=== PATIENT | female | born 1945 | race Caucasian/White ===

== ENCOUNTER 2023-10-01 15:17 | Inpatient (IN) | payer BC ==
[~2023-10-01] VITALS: Ht 149.9 cm; Wt 59.0 kg
[2023-10-01 15:20] VITALS: BP 116/60; PULSE 117; RESP 30; TEMP 101.9; O2SAT 97
[2023-10-01] MEDS: NACL 0.9% 2,000 ML IV ONE (16:13)
[2023-10-01 16:21] LABS: BASOPHILS % (AUTO) 0.3 % (0.0-2.0); EOSINOPHILS % (AUTO) 0.5 % (0.0-4.0); LYMPHOCYTES # (AUTO) 0.5 K/uL (2.5-16.5); LYMPHOCYTES % (AUTO) 9.2 % (20.5-51.1); MEAN CORPUSCULAR HEMOGLOBIN 29 pg (27-31); MEAN CORPUSCULAR HGB CONC 33 g/dL (33-37); MEAN CORPUSCULAR VOLUME 85.2 fL (80-94); MONOCYTES % (AUTO) 0.4 % (1.7-9.3); NEUTROPHILS # (AUTO) 4.9 K/uL (1.8-7.7); NEUTROPHILS % (AUTO) 89.6 % (42.2-75.2); PLATELET COUNT (AUTO) 238 K/uL (140-450); RED BLOOD CELL COUNT(AUTO) 4.22 MIL/uL (4.20-5.40); RED CELL DISTRIBUTION WIDTH 14.1 % (11.6-13.7); WHITE BLOOD COUNT (AUTO) 5.5 K/uL (4.8-10.8)
[2023-10-01 16:26] LABS: FLU A ANTIGEN negative (NEGATIVE); FLU B ANTIGEN NEGATIVE (NEGATIVE)
[2023-10-01 16:46] LABS: ANION GAP 13.9 (8-16); CALCIUM 8.1 mg/dL (8.5-10.1); CARBON DIOXIDE 26.4 mmol/L (21-32); CHLORIDE 104 mmol/L (98-107); CREATININE 0.9 mg/dL (0.6-1.3); GLUCOSE 185 mg/dL (74-106); POTASSIUM 3.3 mmol/L (3.5-5.1); SODIUM SERUM 141 mmol/L (136-145); UREA NITROGEN, BLOOD 12 mg/dL (7-18)
[2023-10-01 17:00] LABS: BILIRUBIN,URINE NEGATIVE (NEGATIVE); BLOOD, URINE TRACE-I (NEGATIVE); COLOR,URINE YELLOW (YELLOW); LEUKOCYTE ESTERASE ,URINE 2+ (NEGATIVE); NITRITE, URINE POSITIVE (NEGATIVE); PROTEIN,URINE NEGATIVE (NEGATIVE); UGLUCOSE NEGATIVE (NEGATIVE); UROBILINOGEN,URINE 0.2 EU/dL (0.2 - 1)
[2023-10-01 17:00] LABS: ALANINE AMINOTRANSFERASE 34 U/L (12-78); ALBUMIN 3.3 g/dL (3.4-5.0); ALKALINE PHOSPHATASE 62 U/L (50-136); ASPARTATE AMINOTRANSFERASE 39 U/L (15-37); BILIRUBIN,DIRECT 0.1 mg/dL (0.0-0.3); LIPASE 38 U/L (16-77); MAGNESIUM 1.6 mg/dL (1.8-2.4); PHOSPHORUS 2.5 mg/dL (2.5-4.9); TOTAL BILIRUBIN 0.4 mg/dL (0.0-1.0); TOTAL PROTEIN, SERUM 7.2 g/dL (6.4-8.2)
[2023-10-01 17:01] LABS: APPEARANCE,URINE CLOUDY (CLEAR)
[2023-10-01 17:08] LABS: BACTERIA,URINE >30 (MANY) /HPF (None Seen); SQUAMOUS EPITHELIAL CELL,UR 4-10 (MOD) /LPF (0-3 (FEW))
[2023-10-01 17:12] LABS: LACTIC ACID 2.6 mmol/L (0.4-2.0)
[2023-10-01] MEDS ORDERED: cefTRIAXone 1,000 MG VIAL ONE (17:33)
[2023-10-01] MEDS: ACETAMINOPHEN EXTRA STRENGTH 500 MG TAB PO ONE (17:55)
[2023-10-01] MEDS ORDERED: ROSU20TA73 PO (19:30)
[2023-10-01] MEDS ORDERED: ATEN50TA2 PO (19:30)
[2023-10-01] MEDS ORDERED: LOSA25TA32 PO (19:30)
[2023-10-01] MEDS ORDERED: GLIP1TAB5 PO (19:30)
[2023-10-01 19:31] VITALS: O2SAT 98
[2023-10-01] MEDS: NACL 0.9% 1,000 ML IV SCH (20:02)
[2023-10-01 21:30] VITALS: BP 99/55; PULSE 95; RESP 18; TEMP 97.3; O2SAT 96
[2023-10-01] MEDS: KCL 20 MEQ IN 100 mL PREMIX 100 ML IV ONE (22:21)
[2023-10-01] MEDS ORDERED: ONDANSETRON 4 MG/2 ML VIAL IVP PRN (23:30)
[2023-10-01] MEDS ORDERED: hydrALAZINE 20 MG/ML VIAL IVP PRN (23:30)
[2023-10-01] MEDS ORDERED: ZOLPIDEM 5 MG TAB PO PRN (23:30)
[2023-10-01] MEDS ORDERED: LORazepam 1 MG TAB PO PRN (23:30)
[2023-10-01] MEDS ORDERED: DEXTROSE 50% 50 ML SYR IVP PRN (23:35)
[2023-10-02 04:00] VITALS: BP 108/61; PULSE 85; RESP 18; TEMP 97.3; O2SAT 97
[2023-10-02 04:17] VITALS: O2SAT 95
[2023-10-02 06:19] LABS: ALANINE AMINOTRANSFERASE 34 U/L (12-78); ALBUMIN 2.8 g/dL (3.4-5.0); ALKALINE PHOSPHATASE 52 U/L (50-136); ANION GAP 15.2 (8-16); ASPARTATE AMINOTRANSFERASE 33 U/L (15-37); CALCIUM 6.9 mg/dL (8.5-10.1); CARBON DIOXIDE 24.3 mmol/L (21-32); CHLORIDE 107 mmol/L (98-107); CREATININE 0.8 mg/dL (0.6-1.3); GLUCOSE 168 mg/dL (74-106); POTASSIUM 3.5 mmol/L (3.5-5.1); SODIUM SERUM 143 mmol/L (136-145); TOTAL BILIRUBIN 0.4 mg/dL (0.0-1.0); TOTAL PROTEIN, SERUM 6.4 g/dL (6.4-8.2); UREA NITROGEN, BLOOD 10 mg/dL (7-18)
[2023-10-02] MEDS: BLOOD GLUCOSE MONITORING 1 DEV DEV FS SCH (06:41)
[2023-10-02] MEDS: INSULIN LISPRO SLIDING SCALE 100 UNITS/ML VIAL SUBQ PRN (06:43)
[2023-10-02 06:52] LABS: BASOPHILS # (AUTO) 0.1 K/uL (0.00-0.22); BASOPHILS % (AUTO) 0.4 % (0.0-2.0); EOSINOPHILS % (AUTO) 0.3 % (0.0-4.0); HEMATOCRIT 32.8 % (36-48); HEMOGLOBIN 10.9 g/dL (12.0-16.0); LYMPHOCYTES # (AUTO) 0.9 K/uL (2.5-16.5); LYMPHOCYTES % (AUTO) 5.3 % (20.5-51.1); MEAN CORPUSCULAR HEMOGLOBIN 29 pg (27-31); MEAN CORPUSCULAR HGB CONC 33 g/dL (33-37); MEAN CORPUSCULAR VOLUME 85.8 fL (80-94); MONOCYTES # (AUTO) 0.7 K/uL (0.8-1.0); NEUTROPHILS # (AUTO) 15.6 K/uL (1.8-7.7); PLATELET COUNT (AUTO) 232 K/uL (140-450); RED BLOOD CELL COUNT(AUTO) 3.82 MIL/uL (4.20-5.40); RED CELL DISTRIBUTION WIDTH 14.5 % (11.6-13.7); WHITE BLOOD COUNT (AUTO) 17.3 K/uL (4.8-10.8)
[2023-10-02 08:00] VITALS: BP 108/62; PULSE 80; PULSE 90; RESP 18; TEMP 98.3; O2SAT 96; O2SAT 98
[2023-10-02 08:50] VITALS: O2SAT 94
[2023-10-02] MEDS: DOCUSATE SODIUM 100 MG GELCAP PO SCH (08:54)
[2023-10-02] MEDS: atenoloL 50 MG TAB PO SCH (08:54)
[2023-10-02] MEDS: LOSARTAN 25 MG TAB PO SCH (08:54)
[2023-10-02] MEDS: PANTOPRAZOLE 40 MG INJ VIAL IVP SCH (09:39)
[2023-10-02 16:00] VITALS: BP 115/67; PULSE 85; RESP 18; TEMP 99.3; O2SAT 96
[2023-10-02] MEDS: HYDROcodone/APAP 5/325 MG 1 TAB TAB PO PRN (19:29)
[2023-10-02 20:00] VITALS: PULSE 90; RESP 18; TEMP 98.2; O2SAT 94
[2023-10-03 04:00] VITALS: BP 136/79; PULSE 86; RESP 19; TEMP 98.1; O2SAT 93
[2023-10-03 05:57] LABS: BASOPHILS % (AUTO) 0.2 % (0.0-2.0); EOSINOPHILS # (AUTO) 0.2 K/uL (0-0.4); EOSINOPHILS % (AUTO) 1.4 % (0.0-4.0); HEMATOCRIT 34.2 % (36-48); HEMOGLOBIN 11.3 g/dL (12.0-16.0); LYMPHOCYTES # (AUTO) 1.4 K/uL (2.5-16.5); MEAN CORPUSCULAR HEMOGLOBIN 28 pg (27-31); MEAN CORPUSCULAR HGB CONC 33 g/dL (33-37); MEAN CORPUSCULAR VOLUME 85.6 fL (80-94); MONOCYTES # (AUTO) 0.5 K/uL (0.8-1.0); MONOCYTES % (AUTO) 3.3 % (1.7-9.3); NEUTROPHILS # (AUTO) 13.4 K/uL (1.8-7.7); NEUTROPHILS % (AUTO) 86.1 % (42.2-75.2); PLATELET COUNT (AUTO) 213 K/uL (140-450); RED CELL DISTRIBUTION WIDTH 14.4 % (11.6-13.7); WHITE BLOOD COUNT (AUTO) 15.5 K/uL (4.8-10.8)
[2023-10-03 06:20] LABS: ALANINE AMINOTRANSFERASE 37 U/L (12-78); ALBUMIN 2.8 g/dL (3.4-5.0); ALKALINE PHOSPHATASE 75 U/L (50-136); ANION GAP 13.8 (8-16); ASPARTATE AMINOTRANSFERASE 29 U/L (15-37); CALCIUM 7.3 mg/dL (8.5-10.1); CARBON DIOXIDE 23.3 mmol/L (21-32); CHLORIDE 105 mmol/L (98-107); CREATININE 0.8 mg/dL (0.6-1.3); GLUCOSE 140 mg/dL (74-106); POTASSIUM 3.1 mmol/L (3.5-5.1); SODIUM SERUM 139 mmol/L (136-145); TOTAL BILIRUBIN 0.3 mg/dL (0.0-1.0); TOTAL PROTEIN, SERUM 6.8 g/dL (6.4-8.2); UREA NITROGEN, BLOOD 10 mg/dL (7-18)
[2023-10-03 08:00] VITALS: PULSE 93; RESP 18; TEMP 99.7; O2SAT 97
[2023-10-03] MEDS: POTASSIUM CHLORIDE 10 MEQ TABER PO ONE (09:13)
[2023-10-03] MEDS: POTASSIUM CHLORIDE 10 MEQ TABER PO SCH ×2 (09:59→18:02)
[2023-10-03 16:00] VITALS: BP 138/74; PULSE 79; RESP 18; TEMP 99.6; O2SAT 100
[2023-10-03 20:00] VITALS: PULSE 79; RESP 16; TEMP 98.4; O2SAT 100
[2023-10-04] VITALS: BP 135/70; PULSE 79; RESP 16; TEMP 98.4; O2SAT 94
[2023-10-04 06:10] LABS: ALANINE AMINOTRANSFERASE 36 U/L (12-78); ALBUMIN 2.7 g/dL (3.4-5.0); ALKALINE PHOSPHATASE 94 U/L (50-136); ANION GAP 14.3 (8-16); ASPARTATE AMINOTRANSFERASE 32 U/L (15-37); CALCIUM 7.8 mg/dL (8.5-10.1); CARBON DIOXIDE 21.9 mmol/L (21-32); CHLORIDE 106 mmol/L (98-107); CREATININE 0.6 mg/dL (0.6-1.3); GLUCOSE 139 mg/dL (74-106); POTASSIUM 4.2 mmol/L (3.5-5.1); SODIUM SERUM 138 mmol/L (136-145); TOTAL BILIRUBIN 0.4 mg/dL (0.0-1.0); TOTAL PROTEIN, SERUM 6.9 g/dL (6.4-8.2); UREA NITROGEN, BLOOD 8 mg/dL (7-18)
[2023-10-04 07:23] LABS: BASOPHILS # (AUTO) 0.1 K/uL (0.00-0.22); BASOPHILS % (AUTO) 0.8 % (0.0-2.0); EOSINOPHILS # (AUTO) 0.2 K/uL (0-0.4); EOSINOPHILS % (AUTO) 1.4 % (0.0-4.0); HEMATOCRIT 36.8 % (36-48); HEMOGLOBIN 12.1 g/dL (12.0-16.0); LYMPHOCYTES # (AUTO) 1.7 K/uL (2.5-16.5); MEAN CORPUSCULAR HEMOGLOBIN 29 pg (27-31); MEAN CORPUSCULAR HGB CONC 33 g/dL (33-37); MEAN CORPUSCULAR VOLUME 86.7 fL (80-94); MONOCYTES # (AUTO) 0.6 K/uL (0.8-1.0); MONOCYTES % (AUTO) 4.3 % (1.7-9.3); NEUTROPHILS # (AUTO) 10.7 K/uL (1.8-7.7); NEUTROPHILS % (AUTO) 80.5 % (42.2-75.2); PLATELET COUNT (AUTO) 103 K/uL (140-450); RED BLOOD CELL COUNT(AUTO) 4.25 MIL/uL (4.20-5.40); RED CELL DISTRIBUTION WIDTH 14.5 % (11.6-13.7); WHITE BLOOD COUNT (AUTO) 13.3 K/uL (4.8-10.8)
[2023-10-04 08:00] VITALS: BP_SYST 151; BP_SYST 155; BP_DIAS 76; BP_DIAS 90; PULSE 73; PULSE 79; RESP 16; RESP 18; TEMP 97.9; TEMP 98.4; O2SAT 100; O2SAT 96
[2023-10-04] MEDS: Z-GUARD PASTE TP SCH (14:53)
[2023-10-04] MEDS: Z-GUARD PASTE TP ONE (14:54)
[2023-10-04 16:00] VITALS: BP 126/61; PULSE 72; RESP 18; TEMP 97.8; O2SAT 99
[2023-10-04 20:00] VITALS: PULSE 79; RESP 16; TEMP 98.4; O2SAT 100
[2023-10-05 06:14] LABS: BASOPHILS # (AUTO) 0.1 K/uL (0.00-0.22); EOSINOPHILS # (AUTO) 0.4 K/uL (0-0.4); EOSINOPHILS % (AUTO) 4.4 % (0.0-4.0); HEMOGLOBIN 12.1 g/dL (12.0-16.0); LYMPHOCYTES # (AUTO) 1.8 K/uL (2.5-16.5); MEAN CORPUSCULAR HEMOGLOBIN 28 pg (27-31); MEAN CORPUSCULAR HGB CONC 34 g/dL (33-37); MEAN CORPUSCULAR VOLUME 84.4 fL (80-94); MONOCYTES # (AUTO) 0.5 K/uL (0.8-1.0); MONOCYTES % (AUTO) 5.7 % (1.7-9.3); NEUTROPHILS # (AUTO) 5.3 K/uL (1.8-7.7); NEUTROPHILS % (AUTO) 65.9 % (42.2-75.2); PLATELET COUNT (AUTO) 250 K/uL (140-450); RED BLOOD CELL COUNT(AUTO) 4.27 MIL/uL (4.20-5.40); RED CELL DISTRIBUTION WIDTH 14.4 % (11.6-13.7)
[2023-10-05 06:33] LABS: ALANINE AMINOTRANSFERASE 47 U/L (12-78); ALBUMIN 2.8 g/dL (3.4-5.0); ALKALINE PHOSPHATASE 83 U/L (50-136); ASPARTATE AMINOTRANSFERASE 32 U/L (15-37); CALCIUM 8.4 mg/dL (8.5-10.1); CARBON DIOXIDE 26.6 mmol/L (21-32); CHLORIDE 105 mmol/L (98-107); CREATININE 0.7 mg/dL (0.6-1.3); GLUCOSE 154 mg/dL (74-106); POTASSIUM 3.6 mmol/L (3.5-5.1); SODIUM SERUM 140 mmol/L (136-145); TOTAL BILIRUBIN 0.3 mg/dL (0.0-1.0); TOTAL PROTEIN, SERUM 7.1 g/dL (6.4-8.2); UREA NITROGEN, BLOOD 11 mg/dL (7-18)
[2023-10-05 07:53] VITALS: TEMP 97.9
[2023-10-05 08:00] VITALS: BP 148/89; PULSE 113; RESP 19; TEMP 97.7; O2SAT 98
[2023-10-05 08:13] VITALS: PULSE 80; RESP 19; O2SAT 99
[2023-10-05] MEDS ORDERED: CIPR500T4 PO (12:05)
[2023-10-05 12:53] VITALS: BP 125/70; PULSE 68; RESP 20; TEMP 97.1
[2023-10-05 17:04] VITALS: BP 123/48; PULSE 74; RESP 18; TEMP 97.3; O2SAT 97
== END 2023-10-05 17:05 | disposition home or self-care (01) | DRG 871 ==
LOC: MED 15:17 → MTU 19:14
PROVIDERS: ADMIT Student in an Organized Health Care Education/Training Program; ATTEND Student in an Organized Health Care Education/Training Program
DX: A41.9 Sepsis, unspecified organism (principal); G93.41 Metabolic encephalopathy; N39.0 Urinary tract infection, site not specified; Z20.822 Contact with and (suspected) exposure to COVID-19; I10 Essential (primary) hypertension; E11.9 Type 2 diabetes mellitus without complications; B96.1 Klebsiella pneumoniae [K. pneumoniae] as the cause of diseases classified elsewhere; Z79.899 Other long term (current) drug therapy; R65.20 Severe sepsis without septic shock
CPT/HCPCS: 36415; 70450; 71045; 80048; 80053; 80076; 81001; 82948; 83036; 83605; 83690; 83735; 84100; 84484; 85025; 87040; 87081; 87086; 87186; 93005; 96361; 96365; 97163-GP; 99291; J0696; J1815; J2470; J3480; J7060; Q0092